=== PATIENT | male | born 1970 | race Native Hawaiian/Other Pacific Islander ===

== ENCOUNTER 2018-04-21 09:10 | Outpatient (CLI) | payer OTHER, BC | END 2018-04-21 23:47 | disposition home or self-care (01) | LOC: MRI 09:10 | DX: R25.8 Other abnormal involuntary movements (principal); R20.2 Paresthesia of skin; G81.90 Hemiplegia, unspecified affecting unspecified side; G37.9 Demyelinating disease of central nervous system, unspecified; M21.371 Foot drop, right foot; I65.29 Occlusion and stenosis of unspecified carotid artery; R41.82 Altered mental status, unspecified; R26.9 Unspecified abnormalities of gait and mobility | CPT/HCPCS: A9576 ==

== ENCOUNTER 2018-10-07 09:13 | Outpatient (CLI) | payer OTHER, BC | END 2018-10-07 23:59 | disposition home or self-care (01) | LOC: US 09:13 | DX: I73.9 Peripheral vascular disease, unspecified (principal) ==

== ENCOUNTER 2022-11-19 08:29 | Outpatient (CLI) | payer OTHER, BC ==
[~2022-11-19] VITALS: Ht 205.7 cm; Wt 122.5 kg
== END 2022-11-19 19:17 | disposition home or self-care (01) ==
LOC: NM 08:29
PROVIDERS: ATTEND Nurse Practitioner
DX: I25.10 Atherosclerotic heart disease of native coronary artery without angina pectoris (principal); R00.2 Palpitations; R07.89 Other chest pain
CPT/HCPCS: A9500; J2785